=== PATIENT | female | born 1995 | race American Indian/Alaskan Native ===

== ENCOUNTER 2021-05-30 10:33 | Emergency (ER) | payer OTHER ==
[2021-05-30] MEDS ORDERED: FLUORESCEIN 1 MG STRIP OP ONE (12:07)
[2021-05-30] MEDS ORDERED: TETRACAINE 0.5% OPHTH SOLN 4ML OU ONE (12:07)
--- NOTE | 2021-05-30 12:19 | Emergency Department Report ---
ED Eye Problem HPI - General Chief complaint: Eye Problems Stated complaint: OBJECT IN LEFT EYE Time Seen by Provider: 05/30/21 11:39 Source: patient Mode of arrival: Ambulatory Limitations: No Limitations - History of Present Illness Initial comments: Patient is a 25-year-old female presents emergency room with complaints of foreign body sensation in her left eye that began yesterday. She states that she has left eye pain and irritation. She states she feels like a burning sensation and has watering. She states that she removed her lashes yesterday. She denies any vision changes. She denies getting anything into the eye that she is aware of. She denies any contact lens use. No past medical history. Allergy to penicillin. - Related Data Previous Rx's Medication Instructions Recorded Last Taken Type Erythromycin [Erythromycin Ophth 1 applicatio OS QID 7 Days #1 tube 05/30/21 Unknown Rx Oint] Allergies Allergy/AdvReac Type Severity Reaction Status Date / Time Penicillins Allergy Hives Verified 05/30/21 10:43 ED Review of Systems ROS: Stated complaint: OBJECT IN LEFT EYE Other details as noted in HPI Comment: All other systems reviewed and negative ED Past Medical Hx - Past Medical History Previous Medical History?: No - Surgical History Past Surgical History?: Yes Additional Surgical History: Left wrist cyst removal - Social History Smoking Status: Never Smoker Substance Use Type: Alcohol - Medications Home Medications: Home Medications Medication Instructions Recorded Confirmed Last Taken Type Erythromycin [Erythromycin Ophth 1 applicatio OS QID 7 Days #1 tube 05/30/21 Unknown Rx Oint] ED Physical Exam - General Limitations: No Limitations General appearance: alert, in no apparent distress - Head Head exam: Present: atraumatic, normocephalic - Eye Eye exam: Present: PERRL, EOMI, conjunctival injection (faint left ), other (fluoroscein stain with drake lamp examination of the left eye: there is an area of uptake just below the pupil, pupil is normal in appearance, no foreign body identified ). Absent: periorbital swelling, periorbital tenderness Pupils: Present: normal accommodation - ENT ENT exam: Present: mucous membranes moist - Neurological Exam Neurological exam: Present: alert, oriented X3 - Psychiatric Psychiatric exam: Present: normal affect, normal mood - Skin Skin exam: Present: warm, dry, intact ED Course Vital Signs 05/30/21 05/30/21 10:43 13:29 Temperature 98.4 F Pulse Rate 91 H 89 Respiratory 18 19 Rate Blood Pressure 120/68 Blood Pressure 134/74 [Left] O2 Sat by Pulse 100 99 Oximetry ED Medical Decision Making - Medical Decision Making Patient is a 25-year-old female presents emergency room with complaints of foreign body sensation in her left eye that began yesterday. She states that she has left eye pain and irritation. She states she feels like a burning sensation and has watering. She states that she removed her lashes yesterday. She denies any vision changes. She denies getting anything into the eye that she is aware of. She denies any contact lens use. No past medical history. Allergy to penicillin. vitals are normal. on exam: faint conjunctival injection of the left side, fluoroscein stain with drake lamp examination of the left eye: there is an area of uptake just below the pupil, pupil is normal in appearance, no foreign body identified, EOMI, PERRLA. examination appears consistent with conjunctivitis. pt given prescription for erythromycin. advised pt Please use medication as prescribed. Please wash hands before and after placing ointment. Avoid rubbing the eyes. Follow-up with contract technical writer. Return to emergency room for any new or worse symptoms. Critical care attestation.: If time is entered above; I have spent that time in minutes in the direct care of this critically ill patient, excluding procedure time. ED Disposition Clinical Impression: Corneal abrasion Qualifiers: Encounter type: initial encounter Laterality: left Qualified Code(s): S05.02XA - Injury of conjunctiva and corneal abrasion without foreign body, left eye, initial encounter Disposition: - TO HOME OR SELFCARE Is pt being admited?: No Does the pt Need Aspirin: No Condition: Stable Instructions: Corneal Abrasion Additional Instructions: Please use medication as prescribed. Please wash hands before and after placing ointment. Avoid rubbing the eyes. Follow-up with contract technical writer. Return to emergency room for any new or worse symptoms. Prescriptions: Erythromycin [Erythromycin Ophth Oint] 1 applicatio OS QID 7 Days #1 tube Referrals: PRIMARY MD KALI [Primary Care Provider] - 2-3 Days [facility] [Provider Group] - 2-3 Days SHERON RENDON MD [Staff Physician] - 2-3 Days Time of Disposition: 12:57 Print Language: SYRIAC
[2021-05-30 13:31] VITALS: BP 134/74
== END 2021-05-30 13:31 | disposition home or self-care (01) ==
LOC: ED 10:33
DX: S05.02XA Injury of conjunctiva and corneal abrasion without foreign body, left eye, initial encounter (principal); Z98.890 Other specified postprocedural states; Z79.2 Long term (current) use of antibiotics; Z88.0 Allergy status to penicillin; X58.XXXA Exposure to other specified factors, initial encounter; Y93.89 Activity, other specified; Y92.89 Other specified places as the place of occurrence of the external cause; Y99.8 Other external cause status